=== PATIENT | male | born 1950 | race Native Hawaiian/Other Pacific Islander ===

== ENCOUNTER 2016-06-06 11:41 | Day surgery (SDC) | payer OTHER, BC ==
[2016-06-02 08:22] LABS: SODIUM 134 mmol/L (136-145)
[2016-06-02 08:33] LABS: PLATELET COUNT 284 K/uL (142-355)
[~2016-06-06] VITALS: Ht 177.8 cm; Wt 64.4 kg
== END 2016-06-06 15:39 | disposition home or self-care (01) ==
LOC: OR 11:41
PROVIDERS: Surgery
PROC: 0WUF0JZ Supplement Abdominal Wall with Synthetic Substitute, Open Approach (ICD-10-PCS; principal; 2016-06-06)
DX: R10.33 Periumbilical pain (principal); K42.9 Umbilical hernia without obstruction or gangrene
CPT/HCPCS: 36415; 80048; 85027; 86850; 86900; 86901; 94664; 94760; C1781; J1335; J2250; J2704; J3010; J3490

== ENCOUNTER 2018-04-16 09:20 | Outpatient (CLI) | payer OTHER, BC | END 2018-04-16 23:12 | disposition home or self-care (01) | LOC: RAD 09:20 | DX: J47.9 Bronchiectasis, uncomplicated (principal) ==

== ENCOUNTER 2018-08-15 07:34 | Outpatient (CLI) | payer OTHER, BC ==
[~2018-08-15] VITALS: Ht 177.8 cm; Wt 65.8 kg
[2018-08-15 10:55] VITALS: BP 95/57; TEMP 98
== END 2018-08-15 11:20 | disposition home or self-care (01) ==
LOC: INF 07:34
DX: M81.0 Age-related osteoporosis without current pathological fracture (principal)
CPT/HCPCS: 36415; 82310; 96372; J0897

== ENCOUNTER 2019-02-14 13:20 | Outpatient (CLI) | payer OTHER, BC ==
[~2019-02-14] VITALS: Ht 177.8 cm; Wt 66.7 kg
[2019-02-14 14:05] VITALS: BP 106/64; TEMP 97.6
== END 2019-02-14 14:54 | disposition home or self-care (01) ==
LOC: INF 13:20
DX: M81.0 Age-related osteoporosis without current pathological fracture (principal)
CPT/HCPCS: 36415; 82310; 96372; J0897

== ENCOUNTER 2019-02-28 07:50 | Outpatient (CLI) | payer OTHER, BC | END 2019-02-28 19:28 | disposition home or self-care (01) | LOC: CT 07:50 | DX: J47.9 Bronchiectasis, uncomplicated (principal) ==

== ENCOUNTER 2019-08-18 08:06 | Outpatient (CLI) | payer OTHER, BC ==
[~2019-08-18] VITALS: Ht 177.8 cm; Wt 64.4 kg
== END 2019-08-18 08:55 | disposition home or self-care (01) ==
LOC: INF 08:06
DX: M81.0 Age-related osteoporosis without current pathological fracture (principal)
CPT/HCPCS: 36415; 82310; 96372; J0897

== ENCOUNTER 2019-11-05 08:07 | Outpatient (CLI) | payer OTHER, BC | END 2019-11-05 23:14 | disposition home or self-care (01) | LOC: RESP 08:07 | DX: J47.9 Bronchiectasis, uncomplicated (principal) ==

== ENCOUNTER 2020-02-16 08:37 | Outpatient (CLI) | payer OTHER, BC ==
[~2020-02-16] VITALS: Ht 177.8 cm; Wt 64.4 kg
[2020-02-16 09:50] VITALS: BP 141/69; TEMP 97.7
== END 2020-02-16 10:45 | disposition home or self-care (01) ==
LOC: INF 08:37
PROVIDERS: ATTEND Internal Medicine
DX: M81.0 Age-related osteoporosis without current pathological fracture (principal)
CPT/HCPCS: 36415; 82310; 96372; J0897

== ENCOUNTER 2020-07-12 08:22 | Outpatient (CLI) | payer OTHER | END 2020-07-12 19:52 | disposition home or self-care (01) | LOC: RAD 08:22 | PROVIDERS: ATTEND Internal Medicine | DX: M81.8 Other osteoporosis without current pathological fracture (principal) ==

== ENCOUNTER 2020-08-17 08:02 | Outpatient (CLI) | payer BC ==
[~2020-08-17] VITALS: Ht 177.8 cm; Wt 64.9 kg
== END 2020-08-17 10:30 | disposition home or self-care (01) ==
LOC: INF 08:02
PROVIDERS: ATTEND Internal Medicine Endocrinology, Diabetes & Metabolism
DX: M81.0 Age-related osteoporosis without current pathological fracture (principal)
CPT/HCPCS: 36415; 82310; 96372; J0897

== ENCOUNTER 2021-02-23 09:42 | Outpatient (CLI) | payer BC ==
[~2021-02-23] VITALS: Ht 177.8 cm; Wt 65.8 kg
== END 2021-02-23 21:21 | disposition home or self-care (01) ==
LOC: INF 09:42
PROVIDERS: ATTEND Internal Medicine
DX: M85.80 Other specified disorders of bone density and structure, unspecified site (principal)
CPT/HCPCS: 36415; 82310; 96372; J0897